=== PATIENT | female | born 2000 | race Caucasian/White ===

== ENCOUNTER 2022-03-23 06:25 | Inpatient (IN) ==
[2022-03-23] MEDS ORDERED: miSOPROStoL 25 MCG TABLET PO PRN (07:18)
[2022-03-23] MEDS ORDERED: Naloxone 0.4 MG/ML INJ IVP PRN (07:18)
[2022-03-23] MEDS ORDERED: Famotidine 20 MG/2 ML VIAL IVP PRN (07:18)
[2022-03-23] MEDS ORDERED: Ringers Solution, Lactated 1,000 ML IVC SCH (07:30)
[2022-03-23 07:58] LABS: Basophils % 0.5 %; Eosinophils # 0.2 K/mcL (0.0-0.6); Eosinophils % 2.4 %; Hematocrit 31.5 % (35.3-44.9); Hemoglobin 10.2 g/dL (11.5-15.4); Immature Granulocytes % 0.4 % (0-4); Lymphocytes # 2.3 K/mcL (0.6-4.6); Lymphocytes % 29.4 %; Mean Corpuscular HGB Conc 32.4 g/dL (31.6-35.5); Mean Corpuscular Hemoglobin 26.8 pg (28.0-33.3); Mean Corpuscular Volume 82.7 fL (83.0-100.0); Mean Platelet Volume 9.7 fL (9.4-12.4); Monocytes # 0.7 K/mcL (0.0-1.3); Monocytes % 8.9 %; Neutrophils # 4.6 K/mcL (1.6-8.9); Platelet Count 275 K/mcL (140-400); Red Blood Count 3.81 M/mcL (3.82-4.97); Red Cell Distribution Width 13.8 % (11.5-14.5); Segmented Neutrophils % 58.4 %; White Blood Count 7.9 K/mcL (4.3-11.1)
[2022-03-23] MEDS ORDERED: EPHEDrine 50 MG/ML VIAL IVP PRN (08:20)
[2022-03-23] MEDS ORDERED: Epidural Premix (fent/bupiv) 110 ML EP SCH (08:30)
[2022-03-23] MEDS: *HR* Nalbuphine 10 MG/ML AMPUL IV PRN ×2 (08:57→11:31)
[2022-03-23 10:08] LABS: Amphetamine Screen,Urine Negative ng/mL (Cutoff=1000); Barbiturate Screen,Urine Negative ng/mL (Cutoff=200); Benzodiazepines Screen,Urine Negative ng/mL (Cutoff=200); Cannabinoid Screen,Urine Positive ng/mL (Cutoff = 50); Cocaine Screen,Urine Negative ng/mL (Cutoff= 300); Opiate Screen,Urine Negative ng/mL (Cutoff=300); Phencyclidine Screen,Urine Negative ng/mL (Cutoff=25)
[2022-03-23] MEDS ORDERED: Oxytocin 30 UNIT/503 ML BAG IVC SCH ×2 (12:00→14:00)
[2022-03-23] MEDS ORDERED: Azithromycin 500 MG in 0.9 % Sodium Chloride 250 ML IVPB ONE (15:47)
[2022-03-23] MEDS ORDERED: Ondansetron 4 MG/2 ML VIAL IVP PRN (17:13)
[2022-03-23] MEDS ORDERED: Ibuprofen 600 MG TABLET PO ONE (22:52)
[2022-03-24] MEDS ORDERED: Rho Immune Globulin 1,500 UNIT SYRINGE IM PRN (00:18)
[2022-03-24] MEDS ORDERED: Lanolin 7 G OINT...G. TP PRN (00:18)
[2022-03-24] MEDS ORDERED: Ondansetron ODT 4 MG TAB.RAPDIS SL PRN (00:18)
[2022-03-24] MEDS ORDERED: Oxytocin 30 UNIT/503 ML BAG IVC SCH (00:18)
[2022-03-24] MEDS ORDERED: Benzocaine/Menthol 56 GM AEROSOL SPRAY TP PRN (00:18)
[2022-03-24 01:56] VITALS: O2SAT 97
[2022-03-24] MEDS: Ibuprofen 600 MG TABLET PO SCH ×4 (07:12→18:02)
[2022-03-24] MEDS: *HR* OxyCODONE Immed Rel 5 MG TABLET PO PRN ×3 (07:12→20:56)
[2022-03-24] MEDS: Acetaminophen 325 MG TABLET PO SCH ×3 (08:01→18:01)
[2022-03-24] MEDS: valACYclovir 500 MG TABLET PO SCH ×2 (08:01→20:49)
[2022-03-24] MEDS: Prenatal Vit/FA 1 EACH TABLET PO SCH (08:01)
[2022-03-24 21:26] VITALS: BP 116/78; PULSE 89; TEMP 97.7
[2022-03-25] MEDS: Ibuprofen 600 MG TABLET PO SCH ×3 (01:18→14:04)
[2022-03-25] MEDS: Acetaminophen 325 MG TABLET PO SCH ×4 (01:18→14:04)
[2022-03-25] MEDS: *HR* OxyCODONE Immed Rel 5 MG TABLET PO PRN (07:09)
[2022-03-25] MEDS: valACYclovir 500 MG TABLET PO SCH (09:30)
[2022-03-25] MEDS: Prenatal Vit/FA 1 EACH TABLET PO SCH (09:31)
[2022-03-26 10:45] LABS: HSV 1 Glycoprotein G IgG 0.14 IV (<=0.89); HSV 2 Glycoprotein G IgG 1.91 IV (<=0.89)
== END 2022-03-25 14:30 | disposition home or self-care (01) | DRG 806 ==
LOC: 1NENULAB 06:25 → 1NENUOBS 03-24 00:18
PROVIDERS: ADMIT Advanced Practice Midwife; ATTEND Advanced Practice Midwife